=== PATIENT | male | born 1955 ===

== ENCOUNTER 2017-04-29 02:35 | Inpatient (IN) | payer MEDICAID, OTHER ==
[2017-04-29 04:27] LABS: ALT (SGPT) 12 U/L (8-55); AST (SGOT) 20 U/L (5-34); Alkaline Phosphatase 38 U/L (40-150); Anion Gap 15 mmol/L (10-20); BUN (Urea Nitrogen) 10 mg/dL (8.4-25.7); Bilirubin, Total 0.6 mg/dL (0.2-1.2); Calc. Creatinine Clearance 0 mL/min (70-130); Calcium 8.3 mg/dL (7.8-10.44); Carbon Dioxide 22 mmol/L (23-31); Chloride 87 mmol/L (98-107); Estimated GFR-MDRD Greater than 90; Globulin 2.6 g/dL (2.4-3.5); Protein, Total 6.3 g/dL (5.8-8.1)
[2017-04-29 04:56] LABS: Troponin I Less than 0.010 ng/mL (< 0.028)
[2017-04-29] MEDS ORDERED: Lorazepam 2 MG/ML VIAL ONE (05:01)
[2017-04-29] MEDS ORDERED: Ondansetron ODT 4 MG TAB PO PRN ×2 (06:54→06:59)
[2017-04-29] MEDS ORDERED: Acetaminophen 325 MG TAB PO PRN (06:54)
[2017-04-29] MEDS ORDERED: Docusate 100 MG CAP PO PRN (06:54)
[2017-04-29] MEDS ORDERED: Ondansetron HCl/PF 4 MG/2 ML Vial IVP PRN (06:59)
[2017-04-29] MEDS ORDERED: Sodium Chloride 0.9% 1,000 ML IV SCH ×2 (07:00)
[2017-04-29] MEDS ORDERED: Diazepam 5 MG TAB PO PRN ×3 (07:14→08:47)
[2017-04-29] MEDS ORDERED: Diazepam 5 MG TAB PO SCH (07:15)
[2017-04-29] MEDS ORDERED: Thiamine HCl 200 MG/2 ML VIAL IM SCH (07:15)
[2017-04-29 07:20] LABS: Anion Gap 12 mmol/L (10-20); BUN (Urea Nitrogen) 9 mg/dL (8.4-25.7); Calc. Creatinine Clearance 93 mL/min (70-130); Calcium 8.3 mg/dL (7.8-10.44); Carbon Dioxide 24 mmol/L (23-31); Chloride 90 mmol/L (98-107); Estimated GFR-MDRD Greater than 90
[2017-04-29 07:25] LABS: Troponin I Less than 0.010 ng/mL (< 0.028)
[2017-04-29] MEDS ORDERED: Nitroglycerin 0.4 MG TAB (25 Tab Bottle) SL PRN (08:38)
[2017-04-29] MEDS ORDERED: Non-Formulary Item 1 EACH (Fluticasone/Salmeterol [Advair Diskus 250/50] 1 PUFF) PO PRN (08:38)
[2017-04-29] MEDS ORDERED: PROVENTIL INHALER 6.7 G (200 INHALATIONS) INH SCH (08:45)
[2017-04-29] MEDS ORDERED: Mometasone/Formoterol 120 PUFF INHALER INH PRN (08:50)
[2017-04-29] MEDS ORDERED: Non-Formulary Item 1 EACH (Nifedipine [Nifedipine Er] 60 MG) PO SCH (09:00)
[2017-04-29] MEDS ORDERED: Atenolol 50 MG TAB PO SCH (09:00)
[2017-04-29] MEDS ORDERED: Aspirin 325 MG TAB PO SCH (09:00)
[2017-04-29] MEDS ORDERED: Non-Formulary Item 1 EACH (Esomeprazole Magnesium [Nexium] 20 MG) PO SCH (09:00)
[2017-04-29] MEDS ORDERED: Lisinopril 20 MG TAB PO SCH ×2 (09:00)
[2017-04-29] MEDS: Multivitamin W/ Minerals 1 TAB PO SCH (09:04)
[2017-04-29] MEDS: Folic Acid 1 MG TAB PO SCH (09:05)
[2017-04-29] MEDS: Thiamine HCl 200 MG/2 ML VIAL SLOW IVP SCH ×2 (09:07→21:21)
[2017-04-29] MEDS: NIFEdipine XL 60 MG TAB PO SCH (09:18)
[2017-04-29] MEDS: Tamsulosin HCl 0.4 MG CAP PO SCH (09:18)
[2017-04-29] MEDS: Atenolol 50 MG TAB PO SCH (09:18)
[2017-04-29 10:18] LABS: Amphetamine Not Detected (NotDetected); Methadone Not Detected (NotDetected); Methamphetamine Not Detected (NotDetected)
[2017-04-29 10:21] LABS: Anion Gap 15 mmol/L (10-20); BUN (Urea Nitrogen) 8 mg/dL (8.4-25.7); Calc. Creatinine Clearance 93 mL/min (70-130); Calcium 8.6 mg/dL (7.8-10.44); Carbon Dioxide 21 mmol/L (23-31); Chloride 88 mmol/L (98-107); Estimated GFR-MDRD Greater than 90
[2017-04-29 10:28] LABS: Troponin I Less than 0.010 ng/mL (< 0.028)
[2017-04-29] MEDS ORDERED: Sodium Chloride 3% 50 ML IVPB SCH ×2 (10:30→19:00)
--- NOTE | 2017-04-29 11:57 | HP-2 ---
CODE STATUS: FULL. PRIMARY CARE PHYSICIAN: Carmen Shaffer FNP ATTENDING: Kenyon Orr M.D. RESIDENT: Carissa Abraham D.O. HISTORIAN: Patient/medical power of attorney at law, Donny Palumbo, number [phone]. CHIEF COMPLAINT: Altered mental status. HISTORY OF PRESENT ILLNESS: Patient is a 61-year-old male with past medical history of alcohol abuse who presents from [facility] for syncope and altered mental status. EMS reported chest pain, but the patient denied at [place] and here. The patient is a poor historian and only remembers needing to go to the bathroom, then blacked out and had subsequent fecal incontinence. He is unsure of his history and his ROS changes depending on who he talks but at the moment is endorsing some nausea and constipation. He does have history of DTs, this is confirmed by talking with medical power of attorney at law, "life partner," Donny Palumbo. He reports he was sitting at the dinner table. He started to look very drowsy. The patient walks towards the bathroom, went into the bathroom, the door was locked and fell sometime after that. Mr. Palumbo was able to get into the bathroom and find Mr. Cummings on the floor. He denies any seizure-like activity as well as no facial droop or asymmetry at that time. In the ER in [place], he was given lactulose, Cipro and a banana bag and transferred over with sodium of 123. In the ER, he was found to have a sodium of [address] Guzman in the ED started normal saline at 75mls/hr. PAST MEDICAL HISTORY: 1. Chronic hepatitis B. 2. BPH. 3. Hypertension. 4. Mental retardation. 5. COPD. 6. ETOH abuse. PAST SURGICAL HISTORY: 1. Appendectomy. 2. Colonoscopy with polypectomy. ALLERGIES: CEFDINIR. MEDICATIONS: 1. Advair 250/50 mcg b.i.d. 2. Flomax 0.4 mg daily. 3. Nifedipine 60 mg p.o. every day. 4. Nexium 40 mg p.o. daily. 5. Proventil HFA 90 mcg 2 puffs p.r.n. 6. Ultram 50 mg t.i.d. 7. Atenolol 50 mg p.o. daily. 8. Citalopram 10 mg p.o. daily. 9. Diazepam 5 mg b.i.d. p.r.n. 10. Nitro 0.4 sublingual p.r.n. 11. Trazodone 100 mg every day. 12. ? lisinopril 20 mg every day. FAMILY HISTORY: Brother with lymphoma. Father with Alzheimer's. SOCIAL HISTORY: The patient endorses tobacco use, one-half pack per day for 40 years which gives him a 60-[id number]-yhmp history. He himself reports 0-3 beers a day, but Mr. Palumbo reports 12 beers per day at the least with his last drink being yesterday sometime. Drugs, the patient denies, but per records has history of drug use in the past. The patient lives with partner Donny Palumbo in an apartment. He reports he does not go out much. He usually just stays inside. REVIEW OF SYSTEMS: General: No fever or chills. Eyes: No vision changes. ENT: Reports headache. Respiratory: Denies cough, congestion. Cardiovascular : Denies chest pain, palpitations. Gastrointestinal: Admits to nausea and constipation. No vomiting, diarrhea or abdominal pain. Genitourinary: Reports of bowel incontinence. No dysuria or urinary incontinence. Skin: No rashes or lesions. Musculoskeletal: No pain. Neurologic: No weakness. Psychiatric: Reports some anxiety, no depression. PHYSICAL EXAMINATION: VITAL SIGNS: Blood pressure 137/69, pulse 78, respiratory rate 20, T-max 97.9, pulse ox 94% on room air, current weight 51.26 kilograms. GENERAL: Patient is alert and oriented x2, very tremulous and appears malnourished. HEENT: Eyes, pinpoint pupils, horizontal nystagmus, scleral injection, no scleral icterus, conjunctivae within normal limits. ENT: Oropharynx within normal limits, poor dentition. NECK: Supple, without lymphadenopathy. CARDIOVASCULAR: Regular rate and rhythm. Heart sounds are distant. RESPIRATORY: Distant breath sounds, but clear to auscultation bilaterally with normal effort. SKIN: Warm and dry. ABDOMEN: Soft, nontender with positive bowel sounds. Abdomen is mildly distended. No fluid wave appreciated. EXTREMITIES: No clubbing or cyanosis or edema. MUSCULOSKELETAL: Structure within normal limits. Tone is within normal limits as well. Significant atrophy, diffuse muscles. NEUROLOGIC: No focal deficits. Does have muscle strength 4/5 in upper extremities and lower extremities. LABORATORY DATA: CBC. CBC done in [place]. White blood cell count 10.9, hemoglobin 13.2, hematocrit 38.1, platelets 265, MCV 94.8. CMP: Sodium 123 in the outside ED, sodium 120 here, potassium 4.0, chloride 87 , CO2 22, BUN 10, creatinine 0.67, glucose 87. GFR is greater than 90, calcium is 8.3, total protein 6.3, albumin 3.7, AST 20, ALT 12, alkaline phosphatase 38 , total bilirubin 0.6. Ammonia 20. Lactic acid 2.6. Flu A and B negative. PT 11.0, INR is 0.49. Plasma alcohol 172.5. Troponin is negative x2. EKG, normal sinus rhythm, no ST changes. Chest x-ray shows small right pleural effusion which is improved from prior. According to [place] records, CT of the head, no acute intracranial abnormality , does show chronic ischemic white matter changes. ASSESSMENT AND PLAN: 1. Altered mental status, etiology unknown. Differential includes alcohol intoxication, hyponatremia effects, postictal from possible seizures, drug overdose. We will start JOSH protocol. We will give NS at 75. We will place the patient on seizure precautions. Currently running another BMP. Pending those results, we will likely recheck in 4 hours. Also ordered a prolactin. Plan to consult Neuro and order EEG. 2. Hyponatremia, plasma osmolality and urine osmolality studies are pending. We will consult Nephrology. Suspicious of euvolemic hyponatremia, possible beer drinkers potomania versus psychogenic polydipsia. We will continue NS at 75. 3. Alcohol intoxication. We will rehydrate and symptomatically treat. 4. Brief altered consciousness, suspect possible seizure versus intoxication. 5. Hypertension, home medications. 6. Chronic obstructive pulmonary disease, home medications. 7. Hepatitis B. We will provide symptomatic treatment and trend LFTs. 8. History of myocardial infarction ?, trend troponins and telemonitoring. 9. Benign prostatic hypertrophy, home medications. 10. Prophylaxis: Sequential compression devices. DISPOSITION AND LENGTH OF HOSPITAL STAY: 1-2 days. Symptomatic medication will be provided. The history and physical as well as management was discussed with Dr. Kenyon Orr. Patient was seen on rounds with the residents. I agree with multani portions of the H&P, plan as noted above with the following addendum. Patient had a spell after heavy drinking. It is unclear if that spell was a blackout, seizure or fall since it was unwitnessed. He presents with significant hyponatremia, which may be beer potomania. We have asked Nephrology to help us with the management of his sodium which may require Avaptan and saline. We need to improve his sodium, but do so slowly with frequent rechecks. MUSTAPHA Orr MD [facility]
[2017-04-29 13:53] LABS: Anion Gap 12 mmol/L (10-20); BUN (Urea Nitrogen) 7 mg/dL (8.4-25.7); Calc. Creatinine Clearance 99 mL/min (70-130); Calcium 8.2 mg/dL (7.8-10.44); Carbon Dioxide 24 mmol/L (23-31); Chloride 88 mmol/L (98-107); Estimated GFR-MDRD Greater than 90
[2017-04-29] MEDS ORDERED: Conivaptan 20 MG in Premix Bag 1 BAG IVPB SCH ×2 (14:30→15:00)
[2017-04-29 17:27] LABS: Anion Gap 11 mmol/L (10-20); BUN (Urea Nitrogen) 6 mg/dL (8.4-25.7); Calc. Creatinine Clearance 93 mL/min (70-130); Calcium 8.5 mg/dL (7.8-10.44); Carbon Dioxide 26 mmol/L (23-31); Chloride 90 mmol/L (98-107); Estimated GFR-MDRD Greater than 90
--- NOTE | 2017-04-29 18:30 | CT ---
CT HEAD NONCONTRAST 04/29/17 INDICATION: Seizure. FINDINGS: There is mild parenchymal volume loss. No evidence of midline shift or acute intracranial hemorrhage. No intracranial mass effect is seen. There is mild paranasal sinus mucosal thickening. IMPRESSION: Generalized mild parenchymal volume loss. No acute intracranial hemorrhage or mass effect. POS: C
--- NOTE | 2017-04-29 20:46 | CON ---
DATE OF CONSULTATION: 04/29/2017 REASON FOR CONSULTATION: Hyponatremia. IMPRESSION: 1. Hyponatremia. This is likely syndrome of inappropriate antidiuretic hormone secretion given the urine chemistry compounded by possible beer potomania. 2. Mental status change. This is very difficult to decipher whether it has to do with hyponatremia as well as the alcohol abuse of this patient. 3. Alcohol dependence. PLAN: 1. The patient is currently on the telemetry floor. We will initiate Vaprisol treatment for the RIGO DH and monitor the sodium closely every hour. If this modality of treatment fails to achieve desired sodium level change, decision will be taken to transfer this patient to ICU in order to initiate hyp ertonic saline with every 2 hours sodium evaluation. However, for now, the patient to make do with V aprisol and q.6 hourly sodium evaluation. 2. The patient's diet to be that of high protein regular diet. 3. Counseled on the need to discontinue alcohol abuse lifestyle. 4. Hold lisinopril for now. HISTORY OF PRESENT ILLNESS: A 61-year-old gentleman with significant alcohol abuse problem, who was t ransferred from [place] where the patient was taken by the EMS with altered mental status and had be en found down. History is not very reliable from this patient, but the patient does have a significa nt history of alcohol abuse. On presentation to our ER here, the patient noted with a sodium level o f about 122. The patient was then started on IV normal saline; however, sodium level seems to have d ropped to 120, this necessitated the need for renal consultation. On clinical reevaluation, this pat ient's urine chemistry is highly consistent with SIADH. PAST MEDICAL HISTORY: Significant for chronic hepatitis B, benign prostatic hyperplasia, hypertensio n, mental retardation, COPD, and alcohol abuse. MEDICATIONS: Reviewed and as documented on [employer]. ALLERGIES: CEFDINIR. FAMILY HISTORY: Significant for Alzheimer's and lymphoma. SOCIAL HISTORY: Significant for alcohol or tobacco abuse. REVIEW OF SYSTEMS: Highly limited given the non-reliable history of this patient. LABORATORY INVESTIGATION: Significant for sodium decrease from 122 to 120. PHYSICAL EXAMINATION: GENERAL: The patient was found to be alert, very poor historian noted with the following vital signs . VITAL SIGNS: Afebrile with temperature 98.3, pulse 87, respiratory rate 16, blood pressure 138/74. HEENT: Unremarkable. CARDIOVASCULAR SYSTEM: First and second heart sounds were heard. RESPIRATORY SYSTEM: Clear to auscultation. DIGESTIVE SYSTEM: Revealed a benign abdomen. EXTREMITIES: No peripheral edema. SKIN: No new gross rash. LYMPHATICS: No peripheral lymphadenopathy. NEUROLOGIC: Alert, tremulous, no lateralizing sign. SUMMARY: A 61-year-old gentleman who presented here with altered mental status and hyponatremic and has significant alcohol abuse problem. Thank you for this consultation. We will follow with you.
--- NOTE | 2017-04-29 20:55 | CON ---
DATE OF CONSULTATION: 04/29/2017 CONSULTING PHYSICIAN: Family Medicine. IMPRESSION: 1. The event sound more consistent with syncope than seizure. 2. Hyponatremia. 3. Alcohol use. 4. Hepatitis B. 5. Normal EEG. PLAN: 1. No anticonvulsants at this point. 2. CT scan of the brain without contrast. 3. Monitor for further events. 4. Correct hyponatremia. HISTORY OF PRESENT ILLNESS: Mr. Cummings is a 61-year-old man with the above noted medical problems harmony g others. He was in the kitchen when he started to feel lightheaded. He decided to get up and go to the bathroom. He felt like he needed to have a bowel movement. He was in the bathroom when he lost consciousness and collapsed to the floor. His roommate reportedly saw some shaking. EMS arrived an d he was awake within a short interval of time while still in the bathroom. There was some headache following the event. There was no nausea or vomiting. Reportedly, his blood pressure was elevated w hen they checked it. He was brought here for further evaluation. He admits to having passed episode s of lightheadedness, but he has never lost consciousness. His sodium level was 120 on arrival. He has not had any withdrawal symptoms or further seizure-like episodes. PAST MEDICAL HISTORY: As listed above. ALLERGIES: None reported. SOCIAL HISTORY: Positive tobacco and alcohol use. No illicit drug use reported. FAMILY HISTORY: Noncontributory. REVIEW OF SYSTEMS: No lateralized weakness or numbness. Positive for poor energy and generalized fa tigue. PHYSICAL EXAMINATION: GENERAL: He is a cachectic appearing middle-aged man lying in bed, in no distress. VITAL SIGNS: Stable. He is afebrile. HEENT: Unremarkable. NEUROLOGIC: He is alert and cooperative. Speech is fluent and clear. No cranial nerve deficits wer e noted. Motor strength is equal. No tremors or asterixis is present. Sensation is intact. Gait w as not tested. SUMMARY: Given the limited information as to the events, I would not start him on anticonvulsants gi all this is his first episode. Imaging of the brain would be appropriate. I will be happy to follow up with him as an outpatient.
[2017-04-29] MEDS ORDERED: Non-Formulary Item 1 EACH (Trazodone Hcl [Trazodone Hcl] 100 MG) PO SCH (21:00)
[2017-04-29 21:16] LABS: Anion Gap 9 mmol/L (10-20); BUN (Urea Nitrogen) 8 mg/dL (8.4-25.7); Calc. Creatinine Clearance 85 mL/min (70-130); Calcium 8.4 mg/dL (7.8-10.44); Carbon Dioxide 26 mmol/L (23-31); Chloride 93 mmol/L (98-107); Estimated GFR-MDRD Greater than 90
[2017-04-29] MEDS: traZODone HCl 50 MG TAB PO SCH (21:20)
[2017-04-30] MEDS ORDERED: Diazepam 5 MG TAB PO PRN (04:00)
[2017-04-30 06:40] LABS: ALT (SGPT) 10 U/L (8-55); AST (SGOT) 16 U/L (5-34); Alkaline Phosphatase 48 U/L (40-150); Anion Gap 14 mmol/L (10-20); BUN (Urea Nitrogen) 10 mg/dL (8.4-25.7); Bilirubin, Total 1.2 mg/dL (0.2-1.2); Calc. Creatinine Clearance 72 mL/min (70-130); Calcium 8.8 mg/dL (7.8-10.44); Carbon Dioxide 23 mmol/L (23-31); Chloride 98 mmol/L (98-107); Estimated GFR-MDRD Greater than 90; Globulin 2.5 g/dL (2.4-3.5)
[2017-04-30 06:44] LABS: #Eosinphils 0.3 thou/uL (0.0-0.7); #Lymphocytes 1.4 thou/uL (1.20-3.40); #Neutrophils 6.1 thou/uL (1.40-6.50); %Basophils 0.1 % (0.0-1.0); %Eosinophils 3.9 % (0.0-10.0); %Lymphocytes 15.8 % (21.0-51.0); %Monocytes 11.2 % (0.0-10.0); Hematocrit 38.5 % (42.0-52.0); Red Blood Cell (RBC) Count 3.91 mill/uL (4.70-6.10); White Blood Cell (WBC) Count 8.8 thou/uL (4.8-10.8)
--- NOTE | 2017-04-30 06:59 | PDOC.FM ---
- Subjective Subjective: Patient states he had a good night. He states he is no longer shaking. He also states that he is ready to quit drinking and quitting smoking. He has no other complaints today. - Objective Vital Signs & Weight: Vital Signs (12 hours) Temp Pulse Resp BP Pulse Ox 04/30/17 04:00 98.7 F 77 16 95/53 L 93 L 04/29/17 23:55 69 95/54 L 04/29/17 23:47 98.2 F 74 16 82/47 L 94 L 04/29/17 20:00 98.2 F 78 18 95 04/29/17 19:44 98.2 F 78 18 90/55 L 95 Weight Admit Weight 57.561 kg Weight 50.485 kg I&O: 04/28/17 04/29/17 04/30/17 06:59 06:59 06:59 Intake Total 1532.2 Output Total 5450 Balance -3917.8 Result Diagrams: 04/30/17 06:11 04/30/17 06:11 <Sameer Dsouza - Last Filed: 04/30/17 08:24> - Objective Vital Signs & Weight: Vital Signs (12 hours) Temp Pulse Resp BP Pulse Ox 04/30/17 08:10 98.9 F 75 16 108/56 L 97 04/30/17 04:00 98.7 F 77 16 95/53 L 93 L 04/29/17 23:55 69 95/54 L 04/29/17 23:47 98.2 F 74 16 82/47 L 94 L Weight Admit Weight 126 lb 14.4 oz Weight 111 lb 4.8 oz I&O: 04/29/17 04/30/17 05/01/17 06:59 06:59 06:59 Intake Total 1532.2 Output Total 5450 Balance -3917.8 Result Diagrams: 04/30/17 06:11 04/30/17 06:11 <Kenyon Orr - Last Filed: 04/30/17 10:26> Phys Exam - Physical Examination HEENT: moist MMs Neck: no nodes, no JVD Respiratory: wheezing present Cardiovascular: RRR, no significant murmur Gastrointestinal: soft, non-tender, no distention, positive bowel sounds Musculoskeletal: no edema, pulses present Neurological: non-focal, normal sensation, moves all 4 limbs Lymphatic: no nodes Psychiatric: normal affect, A&O x 3 Skin: no rash <Sameer Dsouza - Last Filed: 04/30/17 08:24> Dx/Plan (1) Hyponatremia Code(s): E87.1 - HYPO-OSMOLALITY AND HYPONATREMIA Status: Acute Plan: -Sodium this AM is 131 -Dr. Harrison believes it could be due to SIADH. -Vaprisol therapy was used and discontinued because of sodium increase -Will follow Nephro recs -Recheck Na at 12:00 today. -Will need close outpatient follow up (2) SIADH (syndrome of inappropriate ADH production) Status: Acute Plan: -As above with Hyponatremia -Nephro on board -Possibly democlocycline as outpatient. -Na recheck at 12:00 Today -Will need close outpatient follow up. (3) HTN (hypertension) Code(s): I10 - ESSENTIAL (PRIMARY) HYPERTENSION Status: Acute Plan: Continue home meds (4) COPD (chronic obstructive pulmonary disease) Status: Acute Plan: -Continue home meds (5) Alcohol abuse Code(s): F10.10 - ALCOHOL ABUSE, UNCOMPLICATED Status: Acute Plan: -Recommend cessation -ASE protocol - Plan Plan: Will follow Nephro recs and discharge planning made from there. <Sameer Dsouza - Last Filed: 04/30/17 08:24> Attending Addendum - Attending Addendum I personally evaluated the patient and discussed the management with Dr. Dsouza I agree with the History, Examination, Assessment and Plan documented above with any addition or exceptions noted below. Patient's Na has corrected overnight. He is asymptomatic this morning. He is no longer on IV's or meds for his Na. We will monitor it today to make sure that it doesn't drop again. We emphasized the need to stop drinking today. He is on a Valium taper for withdrawal. I recommended AA for him, but he is not currently interested. Moniter today. <Kenyon Orr - Last Filed: 04/30/17 10:26>
[2017-04-30] MEDS: Magnesium Oxide 400 MG TAB PO SCH (09:20)
[2017-04-30] MEDS: Atenolol 50 MG TAB PO SCH (09:20)
[2017-04-30] MEDS: Tamsulosin HCl 0.4 MG CAP PO SCH (09:20)
[2017-04-30] MEDS: NIFEdipine XL 60 MG TAB PO SCH (09:20)
[2017-04-30] MEDS: Multivitamin W/ Minerals 1 TAB PO SCH (09:20)
[2017-04-30] MEDS: Folic Acid 1 MG TAB PO SCH (09:20)
[2017-04-30] MEDS: Thiamine HCl 200 MG/2 ML VIAL SLOW IVP SCH ×2 (09:21→21:26)
[2017-04-30 11:06] VITALS: BMI 17.9
[2017-04-30] MEDS ORDERED: Sodium Chloride 3% 50 ML IVPB SCH (19:00)
[2017-04-30] MEDS: traZODone HCl 50 MG TAB PO SCH (21:28)
--- NOTE | 2017-04-30 21:51 | PRG ---
DATE OF SERVICE: 04/30/2017 The patient was seen and examined. PHYSICAL EXAMINATION: VITAL SIGNS: Noted with following vital signs: Afebrile with temperature 98.2, pulse 80, respirator y rate 20, O2 saturation 94% with a blood pressure 98/61. HEENT: Unremarkable with moist oral mucosa. NECK: Supple. No conjunctival injection or icterus. CARDIOVASCULAR: First and second heart sounds were heard. RESPIRATORY: Clear to auscultation. DIGESTIVE: Revealed a benign abdomen with positive bowel sounds. EXTREMITIES: No peripheral edema. SKIN: No new gross rash. LYMPHATICS: No peripheral lymphadenopathy. LABORATORY INVESTIGATION: Sodium has gone up to 133. IMPRESSION: 1. Hyponatremia in the context of syndrome of inappropriate antidiuretic hormone. 2. Alcohol abuse. PLAN: 1. The patient seems to have responded very well to . 2. Patient to remain on a very high protein diet, restricted water intake as well as counseled on th e need to discontinue alcohol abuse. 3. Close outpatient nephrology followup strongly recommended.
[2017-05-01 06:06] LABS: #Eosinphils 0.5 thou/uL (0.0-0.7); #Monocytes 0.8 thou/uL (0.11-0.59); #Neutrophils 3.7 thou/uL (1.40-6.50); %Basophils 0.4 % (0.0-1.0); %Eosinophils 6.4 % (0.0-10.0); %Lymphocytes 28.5 % (21.0-51.0); %Monocytes 11.7 % (0.0-10.0); Hematocrit 34.4 % (42.0-52.0); Mean Platelet Volume 7.3 fL (7.4-10.4); Red Blood Cell (RBC) Count 3.44 mill/uL (4.70-6.10)
[2017-05-01 06:54] LABS: ALT (SGPT) 10 U/L (8-55); AST (SGOT) 14 U/L (5-34); Alkaline Phosphatase 47 U/L (40-150); Anion Gap 11 mmol/L (10-20); BUN (Urea Nitrogen) 16 mg/dL (8.4-25.7); Bilirubin, Total 0.5 mg/dL (0.2-1.2); Calc. Creatinine Clearance 78 mL/min (70-130); Calcium 8.7 mg/dL (7.8-10.44); Carbon Dioxide 27 mmol/L (23-31); Chloride 100 mmol/L (98-107); Estimated GFR-MDRD Greater than 90; Globulin 2.7 g/dL (2.4-3.5); Protein, Total 6.2 g/dL (5.8-8.1)
--- NOTE | 2017-05-01 07:25 | PDOC.FM ---
- Subjective Subjective: No acute events overnight. Pt reports "I feel so great I could do two laps around the block." Sodium has improved, latest 133. Denies CP, SOB, NVDC, and tremors. Coundeled on importance of alcohol and smoking cessation, pt agreeable. - Objective Vital Signs & Weight: Vital Signs (12 hours) Temp Pulse Resp BP BP Pulse Ox 05/01/17 04:20 98.0 F 69 16 128/60 128/60 95 04/30/17 20:55 98.2 F 83 18 96 Weight Admit Weight 57.561 kg Weight 50.802 kg I&O: 04/30/17 05/01/17 05/02/17 06:59 06:59 06:59 Intake Total 1532.2 580 Output Total 5450 350 Balance -3917.8 230 Result Diagrams: 05/01/17 05:06 05/01/17 05:06 <Harmeet Srivastava - Last Filed: 05/01/17 07:23> - Objective Vital Signs & Weight: Vital Signs (12 hours) Temp Pulse Resp BP BP Pulse Ox 05/01/17 09:55 65 05/01/17 09:53 65 05/01/17 08:20 97.6 F 65 20 135/63 96 05/01/17 04:20 98.0 F 69 16 128/60 128/60 95 Weight Admit Weight 126 lb 14.4 oz Weight 112 lb I&O: 04/30/17 05/01/17 05/02/17 06:59 06:59 06:59 Intake Total 1532.2 940 Output Total 5450 775 Balance -3917.8 165 Result Diagrams: 05/01/17 05:06 05/01/17 05:06 <Kenyon Orr - Last Filed: 05/01/17 11:02> Phys Exam - Physical Examination Constitutional: NAD HEENT: PERRLA, moist MMs Respiratory: no rales, no rhonchi, wheezing present scattered wheezes throughout Cardiovascular: RRR, no significant murmur, no rub Gastrointestinal: soft, non-tender, no distention, positive bowel sounds Musculoskeletal: no edema, pulses present Neurological: non-focal, normal sensation, moves all 4 limbs Skin: no rash <Harmeet Srivastava - Last Filed: 05/01/17 07:23> Dx/Plan (1) Hyponatremia Code(s): E87.1 - HYPO-OSMOLALITY AND HYPONATREMIA Status: Acute (2) SIADH (syndrome of inappropriate ADH production) Status: Acute (3) HTN (hypertension) Code(s): I10 - ESSENTIAL (PRIMARY) HYPERTENSION Status: Acute (4) Alcohol abuse Code(s): F10.10 - ALCOHOL ABUSE, UNCOMPLICATED Status: Acute (5) COPD (chronic obstructive pulmonary disease) Status: Acute - Plan Plan: sodium has improved to 133 and trending upward, pt asymptomatic continue current regimen nephrology consulted, appreciate recs will need op nephro f/u stable for dc to home today counseled on tobacco and alcohol cessation <Harmeet Srivastava - Last Filed: 05/01/17 07:23> Attending Addendum - Attending Addendum I personally evaluated the patient and discussed the management with Dr. Srivastava I agree with the History, Examination, Assessment and Plan documented above with any addition or exceptions noted below. Home today with close followup from home physician. <Kenyon Orr - Last Filed: 05/01/17 11:02>
[2017-05-01 09:10] VITALS: TEMP 97.6
[2017-05-01] MEDS: NIFEdipine XL 60 MG TAB PO SCH (09:53)
[2017-05-01] MEDS: Folic Acid 1 MG TAB PO SCH (09:54)
[2017-05-01] MEDS: Tamsulosin HCl 0.4 MG CAP PO SCH (09:54)
[2017-05-01] MEDS: Magnesium Oxide 400 MG TAB PO SCH (09:55)
[2017-05-01] MEDS: Atenolol 50 MG TAB PO SCH (09:55)
[2017-05-01] MEDS: Multivitamin W/ Minerals 1 TAB PO SCH (09:55)
[2017-05-01] MEDS: Thiamine HCl 200 MG/2 ML VIAL SLOW IVP SCH (09:56)
[2017-05-01 12:11] VITALS: BP 112/56
--- NOTE | 2017-05-02 16:06 | DIS-2 ---
DATE OF ADMISSION: 04/29/2017 DATE OF DISCHARGE: 05/01/2017 RESIDENT: Dr. Dsouza. ADMITTING ATTENDING: Dr. Hoffman. DISCHARGE ATTENDING: Dr. Orr. CONSULTS: Nephrology, Dr. Mills and with Neurology, Dr. Waters. PROCEDURES: None. PRIMARY DIAGNOSES: 1. Hyponatremia. 2. Syndrome of inappropriate antidiuretic hormone. 3. Hypertension. 4. Alcohol abuse. 5. Chronic obstructive pulmonary disease. DISCHARGE MEDICATIONS: 1. Nitroglycerin 0.4 mg sublingual. 2. Advair Diskus. 3. Atenolol 50 mg. 4. Tamsulosin 0.4 mg. 5. Lisinopril 20 mg. 6. Nexium 20 mg. 7. Nifedipine 60 mg. 8. Diazepam 5 mg. 9. Trazodone 100 mg. 10. ProAir. 11. Nystatin. 12. Aspirin 81 mg. 13. Folic acid 1 mg. 14. Multivitamin with minerals 1 tab. DISCONTINUED MEDICATIONS: None. HISTORY OF PRESENT ILLNESS AND HOSPITAL COURSE: The patient is a 61-year-old male with a past medical history significant for alcohol abuse who presents from [facility] for syncope and altered mental status. EMS reported chest pain, but the patient denied at [place] and here. The patient is a poor historian, his only remembers needing to go to the bathroom and then blacked out and had subsequent fecal incontinence. He is unsure of his history and his review of systems changes depending on who he talks, but at the moment endorsing to nausea and constipation. He does have a history of DTs, which is confirmed by talking with medical power of litigation attorney associate, life partner, Donny Palumbo. He reports he was sitting at the dinner table. He started to look very drowsy. The patient walked towards the bathroom, went into the bathroom and the door was locked and fell sometime after that. Mr. Palumbo was able to get into the bathroom and found Mr. Cummings on the floor. He denies any seizure- like activity as well as no facial droop or asymmetry at that time. In the ER in [place], he was given lactulose, Cipro and a banana bag and transferred over with a sodium of 123. In the ER, he was found to have sodium of [address] Guzman in the ED started normal saline at 75 mL an hour. During the hospitalization, some significant laboratory values were as followed , sodium ranged from 123-134 of the day of discharge, the patient did have a benzodiazepine detected on his urinalysis, a urine drug screen which was appropriate for his current medications. The patient was also found to be nonreactive for syphilis, nonreactive for hepatitis C and nonreactive for HIV. The patient also had a prolactin level of 20.52 that does suggest that he did undergo seizure activity, most likely because of his low sodium value. The patient had urine sodium studies that indicated that he probably has a condition of SIADH and so Dr. Harrison with Nephrology was recommending a Conivaptan therapy. The patient was put on Conivaptan therapy and his sodium rate griselda from 123-131 in the appropriate fashion. The Conivaptan therapy was then discontinued at that time as his sodium was rising appropriately. The patient was otherwise asymptomatic and had no other complaints during the hospitalization. The patient was put on ASE protocol before for alcohol abuse. He did not experience any withdrawal symptoms as he was given diazepam as needed during the hospitalization. The patient otherwise had no other medical problems. He has been strongly advised to quit alcohol use and quit smoking and get a close followup with his primary care provider. It is unclear if he will have further problems with his sodium, but Dr. Harrison has recommended that the patient seek close followup and possibly some financial assistance for long-term medications for SIADH. The patient otherwise had no other complications in the hospitalization, he had really made improvements and had no other complications. Then, the patient was discharged in the appropriate condition. DISPOSITION: Stable. DISCHARGE INSTRUCTIONS: 1. He will be discharged home into his own care with his medical power of litigation attorney associate and his life partner. Mr. Palumbo. 2. Diet will be heart healthy diet, increase calorie intake with high protein diet to ensure help of his sodium imbalance. 3. Activity will be as tolerated with no restrictions. 4. Follow up will be with his primary care provider, Carmen Oliva, she is a nurse practitioner out in [place] within 3 days. He should also seek specialist follow up as needed through his primary care provider. We wish him the best of luck and hope he has no further problems from this condition. [facility]
== END 2017-05-01 13:25 | disposition home or self-care (01) | DRG 644 ==
LOC: ERS 02:35 → 2NO 06:23
PROVIDERS: ADMIT Family Medicine; ATTEND Family Medicine
DX: E22.2 Syndrome of inappropriate secretion of antidiuretic hormone (principal); B18.1 Chronic viral hepatitis B without delta-agent; E46 Unspecified protein-calorie malnutrition; R64 Cachexia; Z68.1 Body mass index [BMI] 19.9 or less, adult; F10.229 Alcohol dependence with intoxication, unspecified; I10 Essential (primary) hypertension; J44.9 Chronic obstructive pulmonary disease, unspecified; R55 Syncope and collapse; N40.0 Benign prostatic hyperplasia without lower urinary tract symptoms; F79 Unspecified intellectual disabilities; F17.210 Nicotine dependence, cigarettes, uncomplicated; R56.9 Unspecified convulsions
CPT/HCPCS: 36415; 70450; 80053; 80306; 82140; 82553; 83930; 83935; 84146; 84300; 84443; 84484; 85025; 86780; 86803; 87389; 93005; 95816; 95819; 96361; 96374; A4216; J2060; J3411; J3475; J7050; J7131